=== PATIENT | male | born 1980 | race African-American/Black ===

== ENCOUNTER 2019-08-12 04:05 | Emergency (ER) | payer BC, OTHER ==
[~2019-08-12] VITALS: Ht 177.8 cm; Wt 91.0 kg
[2019-08-12] MEDS ORDERED: HYDROCODONE/ACETAMINOPHEN 5/325MG TABLET PO ONE (04:30)
[2019-08-12 06:00] VITALS: BP 159/99
== END 2019-08-12 06:01 | disposition home or self-care (01) ==
LOC: ER 04:10
DX: S43.122A Dislocation of left acromioclavicular joint, 100%-200% displacement, initial encounter (principal); S16.1XXA Strain of muscle, fascia and tendon at neck level, initial encounter; R03.0 Elevated blood-pressure reading, without diagnosis of hypertension; V49.40XA Driver injured in collision with unspecified motor vehicles in traffic accident, initial encounter; Y93.89 Activity, other specified; Y92.410 Unspecified street and highway as the place of occurrence of the external cause
CPT/HCPCS: 71045; 72040; 73030; 99284